=== PATIENT | female | born 1980 | race Caucasian/White ===

== ENCOUNTER 2019-03-15 09:24 | Emergency (ER) | payer SELFPAY ==
[~2019-03-15] VITALS: Ht 157.4 cm; Wt 65.8 kg
[~2019-03-15 09:24] MED LIST: ANAPROX DS550 MG PO; FE-TABS325 MG PO; HYDROCODONE BIT1 T11 PO; IBUPROFEN600 MG PO; MACROBID100 M1 PO; PRENATAL1 TA2 PO; PRENATAL1 TA6 PO; TRAMADOL HCL50 MG PO; ZOFRAN ODT4 MG SL
== END 2019-03-15 09:55 | disposition home or self-care (01) ==
LOC: ED 09:24
DX: L55.0 Sunburn of first degree (principal)

== ENCOUNTER 2019-06-15 14:32 | Emergency (ER) | payer SELFPAY ==
[~2019-06-15] VITALS: Ht 157.4 cm; Wt 65.8 kg
[2019-06-15] MEDS ORDERED: PENICILLIN VK500 MG PO (15:41)
== END 2019-06-15 16:10 | disposition home or self-care (01) ==
LOC: ED 14:32
DX: K04.7 Periapical abscess without sinus (principal); F17.200 Nicotine dependence, unspecified, uncomplicated

== ENCOUNTER 2019-06-22 16:08 | Emergency (ER) | payer SELFPAY ==
[~2019-06-22] VITALS: Ht 157.4 cm; Wt 69.9 kg
[~2019-06-22 16:08] MED LIST changes: +PENICILLIN VK500 MG PO
[2019-06-22] MEDS ORDERED: Motrin,Rufen800 MG PO (16:21)
[2019-06-22] MEDS ORDERED: SEPTDS PO (16:21)
[2019-06-22] MEDS ORDERED: KEFLEX500 M1 PO (16:21)
[2019-06-22] MEDS ORDERED: CEFADROXIL500 M1 PO (16:22)
== END 2019-06-22 16:29 | disposition home or self-care (01) ==
LOC: ED 16:08
DX: L02.411 Cutaneous abscess of right axilla (principal); F17.200 Nicotine dependence, unspecified, uncomplicated; Z98.890 Other specified postprocedural states

== ENCOUNTER 2019-06-24 16:51 | Inpatient (IN) | payer SELFPAY ==
[~2019-06-24] VITALS: Ht 157.4 cm; Wt 64.9 kg
--- NOTE | ~2019-06-24 | PROC NOTE ---
[place], [place] PROCEDURE NOTE [id number] UN[facility] #: [id number] ROOM: 526 DOCTOR: SAE LEDESMA MD BIRTHDATE: [birth year] DOS: 06/28/2019 PREOPERATIVE DIAGNOSIS: Right axillary abscess. POSTOPERATIVE DIAGNOSIS: Right axillary abscess. PROCEDURE: Drainage of right axillary abscess. SURGEON: Sae Ledesma MD PHYSICAL THERAPY PROFESSOR: LEO. ANESTHESIA: MAC. INDICATIONS: This is a 38-year-old lady admitted for the past few days with a right axillary abscess, who is here for the above-mentioned procedure. The procedure and its complications were explained to the patient in detail and she agreed to proceed. DESCRIPTION OF PROCEDURE: After identifying the patient, the patient was brought to the operating suite and laid in the supine position. After time-out procedure was called, IV sedation was administered by the anesthesia team and the entire parts were then painted and draped in the usual sterile fashion. The patient already had an opening in the right axilla from which seropurulent drainage was seen to emanate. There was no debridement necessary. No incision was made. Through this opening, the fluid was drained in its entirety and saline was used for irrigation. Thereafter, a quarter inch iodoform was used for packing and a dressing was placed. The patient tolerated the procedure well. There were no complications. Dr. Sae Ledesma, the attending surgeon, who was present throughout the operating case. Sae Ledesma MD CM:PROCNOTE:PROCEDURE NOTE [id number] SAE LEDESMA MD
[~2019-06-24 16:51] MED LIST changes: +CEFADROXIL500 M1 PO; +KEFLEX500 M1 PO; +Motrin,Rufen800 MG PO; +SEPTDS PO
[2019-06-24 16:56] VITALS: BP 134/81
[2019-06-24 18:13] LABS: BASO % 0.2 % (0.0-1.0); EOS # 0.2 10*3/uL (0.0-0.4); EOS % 1.1 % (1.0-4.0); HEMATOCRIT 39.9 % (37.0-47.0); MEAN CELL VOLUME 92.1 fl (81.0-99.0); MEAN CORPUSCULAR HGB 32.3 pg (27.0-31.0); MEAN CORPUSCULAR HGB CONC 35.1 g/dl (33.0-37.0); MEAN PLATELET VOLUME 10.7 fl (9.6-12.3); MONO # 1.3 10*3/uL (0.1-1.0); MONO % 8.4 % (3.0-9.0); NEUT # 11.6 10*3/uL (2.3-7.9); NEUT % 76.6 % (47.0-73.0); PLATELET COUNT AUTOMATED 288 10*3/uL (130-400); RED BLOOD COUNT 4.33 10*6/uL (4.10-5.10); RED CELL DISTRI WIDTH 13.2 % (0-14.5); WHITE BLOOD COUNT 15.2 10*3/uL (4.8-10.8)
[2019-06-24 18:28] LABS: ALBUMIN 2.8 gm/dl (3.1-4.5); CREATININE 2.82 mg/dL (0.55-1.02); POTASSIUM 2.6 mmol/L (3.5-5.1); TOTAL PROTEIN 7.4 gm/dL (6.4-8.2)
[2019-06-24 18:33] LABS: ACT PARTIAL THROMBO TIME 22.5 SECONDS (20.0-32.1); INTERNATIONAL NORM RATIO 0.9 (2.0-3.5)
[2019-06-24 18:45] LABS: BILIRUBIN NEGATIVE (NEGATIVE); BLOOD 2+ (NEGATIVE); CLARITY SL CLOUDY (CLEAR); COLOR YELLOW (YELLOW); GLUCOSE NEGATIVE (NEGATIVE); KETONE NEGATIVE (NEGATIVE); LEUKO ESTERASE TRACE (NEGATIVE); NITRITE NEGATIVE (NEGATIVE)
[2019-06-24 18:55] LABS: BACTERIA 2+; WBC TNTC wbc/hpf (0-5)
[2019-06-24 20:07] VITALS: BP 129/87
[2019-06-24 20:30] VITALS: BP 132/88
--- NOTE | 2019-06-24 20:30 | NUR ---
Time: 2029 A 38 year old FEMALE admitted to 5E under services of MAYANK PINEDA DO. Pt. arrived via stretcher from ER. Chief complaint: CELLULITIS. YOLA, SEVERE SEPSIS. JOSE ARMSTRONG
--- NOTE | 2019-06-24 20:30 | NUR ---
A 38, admitted to , under the services of MAYANK Pineda DO with a diagnosis of cellulitis. Chief complaint is failed outpatient treatment redness getting worse. Patient arrived via stretcher from ER. Monitor applied. Initial assessment completed. Vital signs taken and recorded. MAYANK PINEDA DO notified of admission to the unit. Orders received. See assessment for past medical history, medications and allergies. Patient and/or family oriented to unit. [facility] visitation policy reviewed. Clothing/patient valuable form completed. HENRY ANGUIANO
--- NOTE | 2019-06-24 21:00 | NUR ---
PT. NOT TOLERATING IV FLUIDS INFUSING AT 999ML/H HAD TO TURN FLUIDS DOWN TO 250ML/HR. ALSO LEFT ARM IV SITE BECOMING RED AND ITCHING PT. ALSO HAS VANCOMYCIN INFUSING AT DIRECTED RATE AND THIS WAS STOPPED AND JUST FLUSHING WITH 0.9NS. NOTIFYING PHYSICIAN.
--- NOTE | 2019-06-24 21:15 | NUR ---
NOTIFIED DR. BLAKELY STOPPING VANCOMYCIN BECAUSE OF REDNESS AND ITCHING AT IV SITE AND HE IS TO GET BACK WITH THIS RN FOR FURTHER ORDERS.
--- NOTE | 2019-06-24 21:17 | NUR ---
PT C/O RUE PAIN10/10. MEDICATED WITH PRN MED. SEE EMAR FOR FURTHER DOCUMENTATION. WILL MONITOR FOR EFFECTIVENESS
--- NOTE | 2019-06-24 21:53 | NUR ---
BENADRYL GIVEN PER ORDER FOR ITCHING LEFT ARM AND REDNESS. POSSIBLE ALLERGY TO VANCOMYCIN. PER DR. ZORA VALDEZ PER PHARMACY TO RESTART VANCOMYCIN AT LOWER RATE AND PT. TO MONITOR PATIENT FOR ALLERGY FOR NEXT TWO HOURS.
--- NOTE | 2019-06-24 22:15 | NUR ---
MORPHINE EFFECTIVE FOR RIGHT ARM PIT PAIN. PT. COULD NOT TOLERATED IV FLUIDS INFUSING AT 999ML/HR HAD TO TURN FLUID DOWN TO 250CC/HR PT. TOLERATING THIS BETTER.
[2019-06-25] VITALS: BP 124/84
--- NOTE | 2019-06-25 01:58 | NUR ---
SLEEPING AT THIS TIME. RESP. EASY AND REG.HR PER CM STILL 110'S
--- NOTE | 2019-06-25 03:46 | NUR ---
MORPHINE GIVEN PER ORDER FOR RIGHT AXILLARY ABSCESS PAIN RATED "10". SEE MAR.
--- NOTE | 2019-06-25 04:35 | NUR ---
MORPHINE EFFECTIVE FOR RIGHT ARM ABSCESS PAIN. PT. SLEEPING. RESP. EASY AND REG.
--- NOTE | 2019-06-25 05:31 | NUR ---
ASH [facility]ONEL [id number] Please refer to the physician's history and physical for past medical history, comorbid conditions, and allergies. Diagnosis: CELLULITIS YOLA SEVERE SEPSIS Rene Score: 23,LOW OR NO RISK WOUND DESCRIPTIONS: Wound Number: 1 Location of the wound: right axilla Thickness: Full Size: 0.7cm x 2.2cm x 1.9cm Tunneling: none Undermining: none Sinus Tract: none Presence of Exudate: Purulent Amount: Moderate Color: Yellow, brown, red Odor: None Periwound Skin Appearance: Normal Wound edges: approximated Pain (associated with wound): very tender to touch How does patient state this happened? pt stated that this started on june 15 and the or the in our ED. Surface the patient is resting on: Position SKIN PREVENTION RECOMMENDATION: 1. Pressure redistribution support surface as appropriate 2. Elevate heels 3. Remove boots/TEDS every shift and reapply 4. Head of bed 30 degrees as tolerated 5. Assess nutrition and hydration 6. Manage moisture 7. Avoid the use of containment devices while in bed 8. Use absorptive products on surfaces limit layers of linens on bed 9. Turn and reposition every 1-2 hours in bed and every 1 hour in chair as tolerated 10. Weight shifts every 15 minutes while up in chair 11. Offloading with pillows or device to keep heels elevated off bed 12. Monitor skin at least every shift 13. Inspect under medical devices twice a day WOUND TREATMENT RECOMMENDATIONS: Full thickness guidelines: Cleanse right axilla with nss and apply sureprep around the wound therahoney to wound bed and lightly pack with maxorb ag. Possible ID for right axilla surgery is on and patient is npo for possible surgery. Patient states she will follow up with Dr. Ledesma or in the wound care center upon discharge for treatment.
--- NOTE | 2019-06-25 05:58 | NUR ---
CALLED DR. DAVE AND NOTIFIED HIM OF CONSULT AND PT. CONDITION AND CT SCAN RESULTS. NO NEW ORDERS AT THIS TIME BUT PT. IS NPO UNTIL DR. DAVE SEES PATIENT.
[2019-06-25 07:09] LABS: BASO % 0.3 % (0.0-1.0); EOS # 0.1 10*3/uL (0.0-0.4); EOS % 1.3 % (1.0-4.0); HEMATOCRIT 30.7 % (37.0-47.0); HEMOGLOBIN 10.6 g/dl (12.0-16.0); LYMPH # 1.5 10*3/uL (1.3-4.4); LYMPH % 16.1 % (27.0-41.0); MEAN CELL VOLUME 92.7 fl (81.0-99.0); MEAN CORPUSCULAR HGB CONC 34.5 g/dl (33.0-37.0); MEAN PLATELET VOLUME 10.5 fl (9.6-12.3); MONO # 1.1 10*3/uL (0.1-1.0); MONO % 11.7 % (3.0-9.0); NEUT # 6.5 10*3/uL (2.3-7.9); NEUT % 69.7 % (47.0-73.0); PLATELET COUNT AUTOMATED 250 10*3/uL (130-400); RED BLOOD COUNT 3.31 10*6/uL (4.10-5.10); RED CELL DISTRI WIDTH 13.2 % (0-14.5); WHITE BLOOD COUNT 9.4 10*3/uL (4.8-10.8)
[2019-06-25 07:20] LABS: POTASSIUM 2.9 mmol/L (3.5-5.1)
[2019-06-25 07:29] LABS: CREATININE 1.49 mg/dL (0.55-1.02); PHOSPHOROUS 2.8 mg/dL (2.5-4.9); THYROID STIM HORMONE (HS) 0.31 uIU/ml (0.358-4.75); TOTAL PROTEIN 5.4 gm/dL (6.4-8.2)
[2019-06-25 08:00] VITALS: BP 118/80
--- NOTE | 2019-06-25 08:34 | NUR ---
PT C/O 10/10 PAIN TO RIGHT AXILLA, MEDICATED WITH MORPHINE PER ORDER. WILL MONITOR.
--- NOTE | 2019-06-25 09:00 | NUR ---
PT MUCH MORE RELAXED AND STATES MORPHINE HAS BEEN EFFECTIVE.
[2019-06-25 09:03] LABS: VITAMIN D, 25-HYDROXY 22.6 ng/mL (30-100)
--- NOTE | 2019-06-25 10:51 | NUR ---
Dr. Warren notified of wound care recommendations.
--- NOTE | 2019-06-25 10:58 | NUR ---
Follow up with Dr. Esqueda in wound care clinic on 06/28/19 at 3:00pm, call [phone] with any concerns
[2019-06-25 12:00] VITALS: BP 106/65
--- NOTE | 2019-06-25 13:27 | NUR ---
Medication Aid in to talk to patient. Patient states lives at HOME with UNCLE. There are NO steps in the home. Physician: NONE AT THIS TIME [facility]acy: [facility] Home health services: NONE Patient's level of ADLs: INDEPENDENT Patient has working utilities: YES DME: NONE Follow-up physician's appointment after d/c: WILL BE MADE BY HOSPITALIST NURSE DIRECTOR ON DISCHARGE Does patient want to access PORTAL?: NO Discharge plan PT LIVES AT HOME WITH HER UNCLE AND IS INDEPENDENT IN HER CARE. DENIES SHE WILL HAVE NEEDS AT HOME. WILL CONTINUE TO FOLLOW. PT STATES SHE WILL HAVE A RIDE HOME ON DISCHARGE.. HANSA BRADLEY
[2019-06-25 16:00] VITALS: BP 117/69
--- NOTE | 2019-06-25 16:21 | NUR ---
PATIENT COMPLAINING OF PAIN IN RIGHT AXILLA AREA WHERE HER WOUND IS . NORCO GIVEN PER REQUEST FOR A 6 OUT 10 ON THE PAIN SCALE. CALL LIGHT WITHIN REACH.
[2019-06-25 20:00] VITALS: BP 114/76
--- NOTE | 2019-06-25 20:19 | NUR ---
NORCO GIVEN FOR PAIN RIGHT ARM RATED "10" WORSE WITH MOVEMENT. SEE MAR.
--- NOTE | 2019-06-25 21:18 | NUR ---
NORCO HELPS WITH DECREASING PAIN PER PT.
[2019-06-26] VITALS: BP 108/70
[2019-06-26 06:36] LABS: BASO % 0.6 % (0.0-1.0); EOS # 0.2 10*3/uL (0.0-0.4); EOS % 2.1 % (1.0-4.0); HEMATOCRIT 31.6 % (37.0-47.0); HEMOGLOBIN 10.8 g/dl (12.0-16.0); LYMPH # 1.6 10*3/uL (1.3-4.4); LYMPH % 21.5 % (27.0-41.0); MEAN CELL VOLUME 93.5 fl (81.0-99.0); MEAN CORPUSCULAR HGB CONC 34.2 g/dl (33.0-37.0); MEAN PLATELET VOLUME 10.3 fl (9.6-12.3); MONO # 1.1 10*3/uL (0.1-1.0); MONO % 15.7 % (3.0-9.0); NEUT # 4.2 10*3/uL (2.3-7.9); NEUT % 57.6 % (47.0-73.0); PLATELET COUNT AUTOMATED 229 10*3/uL (130-400); RED BLOOD COUNT 3.38 10*6/uL (4.10-5.10); RED CELL DISTRI WIDTH 13.8 % (0-14.5); WHITE BLOOD COUNT 7.2 10*3/uL (4.8-10.8)
[2019-06-26 06:47] LABS: CHLORIDE 115 mmol/L (98-107); POTASSIUM 3.6 mmol/L (3.5-5.1); SODIUM 144 mmol/L (136-145)
[2019-06-26 06:52] LABS: BUN 10 mg/dl (7-24)
[2019-06-26 08:00] VITALS: BP 126/84
--- NOTE | 2019-06-26 08:15 | NUR ---
PT REQUESTED AND RECEIVED IV MORPHINE PER PRN ORDER FOR C/O PAIN TO RIGHT AXILLA. RATES PAIN /10. WILL MONITOR EFFECTIVENESS. VSS. CALL LIGHT WITHIN REACH.
--- NOTE | 2019-06-26 09:00 | NUR ---
MORPHINE RELIEVING PAIN PER PT. WILL CONTINUE TO MONITOR.
[2019-06-26 12:00] VITALS: BP 126/85
[2019-06-26 16:00] VITALS: BP 134/91
[2019-06-26 20:00] VITALS: BP 135/89
--- NOTE | 2019-06-26 23:00 | NUR ---
IV discontinued LEFT ARM. Site symptomatic PAINFUL. Pressure applied. Sterile dressing applied. BUFFY ACOSTA
[2019-06-27] VITALS: BP 128/85
[2019-06-27 04:00] VITALS: BP 137/88
[2019-06-27 07:15] LABS: BUN 6 mg/dl (7-24); CHLORIDE 117 mmol/L (98-107); CREATININE 0.69 mg/dL (0.55-1.02); POTASSIUM 3.9 mmol/L (3.5-5.1); SODIUM 145 mmol/L (136-145)
[2019-06-27 07:35] LABS: HEMATOCRIT 31.4 % (37.0-47.0); HEMOGLOBIN 10.6 g/dl (12.0-16.0); MEAN CELL VOLUME 95.2 fl (81.0-99.0); MEAN CORPUSCULAR HGB 32.1 pg (27.0-31.0); MEAN CORPUSCULAR HGB CONC 33.8 g/dl (33.0-37.0); MEAN PLATELET VOLUME 11.1 fl (9.6-12.3); PLATELET COUNT AUTOMATED 244 10*3/uL (130-400); RED CELL DISTRI WIDTH 13.5 % (0-14.5); WHITE BLOOD COUNT 7.5 10*3/uL (4.8-10.8)
[2019-06-27 08:00] VITALS: BP 128/80
[2019-06-27 08:23] LABS: PLATELET SUFFICIENCY NORMAL (NORMAL); TOTAL CELLS COUNTED 100 #CELLS
[2019-06-27 12:00] VITALS: BP 137/88
[2019-06-27 16:00] VITALS: BP 137/88; BP 138/95
[2019-06-27 20:00] VITALS: BP 106/62
--- NOTE | 2019-06-27 20:51 | NUR ---
PATIENT COMPLAINS OF ARM PAIN RATED AT A 9. PRN NORCO ADMINISTERED AT THIS TIME. WILL MONITOR FOR EFFECTIVENESS.
--- NOTE | 2019-06-27 21:58 | NUR ---
PT STATES RELIEF FROM PREVIOUS NORCO.
[2019-06-28] VITALS (8 sets, daily range): BP systolic 119–149; BP diastolic 80–99
[2019-06-28 07:15] LABS: HEMATOCRIT 32.7 % (37.0-47.0); HEMOGLOBIN 10.8 g/dl (12.0-16.0); MEAN CELL VOLUME 95.6 fl (81.0-99.0); MEAN CORPUSCULAR HGB 31.6 pg (27.0-31.0); MEAN PLATELET VOLUME 10.5 fl (9.6-12.3); PLATELET COUNT AUTOMATED 272 10*3/uL (130-400); RED BLOOD COUNT 3.42 10*6/uL (4.10-5.10); RED CELL DISTRI WIDTH 13.2 % (0-14.5); WHITE BLOOD COUNT 7.1 10*3/uL (4.8-10.8)
[2019-06-28 07:41] LABS: BUN 4 mg/dl (7-24); CHLORIDE 111 mmol/L (98-107); CREATININE 0.71 mg/dL (0.55-1.02); POTASSIUM 3.5 mmol/L (3.5-5.1); SODIUM 142 mmol/L (136-145)
[2019-06-28 07:44] LABS: PLATELET SUFFICIENCY NORMAL (NORMAL); POLYCHROMASIA SLIGHT; TOTAL CELLS COUNTED 100 #CELLS; TOXIC GRANULATION SLIGHT
--- NOTE | 2019-06-28 08:38 | NUR ---
Wound care follow rescheduled for 07/01/19 at 8:00am
--- NOTE | 2019-06-28 12:13 | NUR ---
PT OFF FLOOR VIA BED FOR I&D OF RIGHT AXILLARY ABSCESS WITH DR DAVE IN OR.
--- NOTE | 2019-06-28 14:09 | NUR ---
PT RETURNED TO FLOOR VIA BED FROM OR.STABLE AT THIS TIME REPORT RECIEVED. VITALS OBTAINED. RESPS EASY ON RA. CALL LIGHT IN REACH.
--- NOTE | 2019-06-28 14:28 | NUR ---
PATIENT COMPLAINS OF SHARP 10/10 PAIN IN THE RIGHT UNDER ARM. MEDICATED PER ORDER. WILL CONTINUWE TO MONITOR FOR RELIEF. VERBALIZED NO OTHER CONCERNS AT THIS TIME. RESTING IN BED. CALL LIGHT WITHIN REACH.
--- NOTE | 2019-06-28 14:29 | NUR ---
PT HAS NO NEEDS ON DISCHARGE PER HER. WILL CONTINUE TO FOLLOW.
--- NOTE | 2019-06-28 17:09 | NUR ---
Patient resting quietly with no c/o discomfort. Respirations easy and regular. Vital signs stable. No overt distress. DYLON DALH
--- NOTE | 2019-06-28 18:13 | NUR ---
IV started left forearm with #22 angiocath after 1 attempts. The IV site was prepped with Chloraprep. Heparin lock attached. Sterile dressing applied. Patient tolerated precedure well. Procedure performed according to [facility] policy & procedure. YDLON DAHL
--- NOTE | 2019-06-28 20:19 | NUR ---
PT MEDICATED WITH PRN NORCO FOR C/O PAIN RATED A 9/10. WILL MONITOR FOR EFFECTIVENESS.
[2019-06-29] VITALS: BP 122/78
[2019-06-29 06:12] LABS: BASO # 0.1 10*3/uL (0.0-0.1); BASO % 0.5 % (0.0-1.0); EOS # 0.2 10*3/uL (0.0-0.4); EOS % 2.5 % (1.0-4.0); HEMATOCRIT 33.6 % (37.0-47.0); HEMOGLOBIN 11.3 g/dl (12.0-16.0); LYMPH # 1.7 10*3/uL (1.3-4.4); LYMPH % 18.2 % (27.0-41.0); MEAN CELL VOLUME 94.4 fl (81.0-99.0); MEAN CORPUSCULAR HGB 31.7 pg (27.0-31.0); MEAN CORPUSCULAR HGB CONC 33.6 g/dl (33.0-37.0); MEAN PLATELET VOLUME 10.3 fl (9.6-12.3); MONO # 0.6 10*3/uL (0.1-1.0); MONO % 6.7 % (3.0-9.0); NEUT # 6.5 10*3/uL (2.3-7.9); NEUT % 69.7 % (47.0-73.0); PLATELET COUNT AUTOMATED 320 10*3/uL (130-400); RED BLOOD COUNT 3.56 10*6/uL (4.10-5.10); WHITE BLOOD COUNT 9.3 10*3/uL (4.8-10.8)
[2019-06-29 06:21] LABS: BUN 4 mg/dl (7-24); CHLORIDE 110 mmol/L (98-107); CREATININE 0.71 mg/dL (0.55-1.02); POTASSIUM 3.5 mmol/L (3.5-5.1); SODIUM 143 mmol/L (136-145)
[2019-06-29 06:24] LABS: VANCOMYCIN TROUGH 14.4 ug/mL (10-20)
[2019-06-29 08:00] VITALS: BP 118/80
[2019-06-29 12:00] VITALS: BP 122/80
--- NOTE | 2019-06-29 13:24 | NUR ---
PT CONTINUES TO DENY NEEDS AT HOME. WILL CONTINUE TO FOLLOW.
--- NOTE | 2019-06-29 13:38 | NUR ---
TYLENOL GIVEN FOR C/O HEADACHE. WILL MONITOR.
[2019-06-29 16:00] VITALS: BP 144/84
[2019-06-29 20:00] VITALS: BP 127/94; BP 130/80
--- NOTE | 2019-06-29 23:58 | NUR ---
24 HR chart check completed.
[2019-06-30] VITALS: BP 121/68
[2019-06-30 08:00] VITALS: BP 134/86
[2019-06-30] MEDS ORDERED: NATURE'S BLEND F1 MG PO (08:34)
[2019-06-30] MEDS ORDERED: VITAMIN D32000 UNI1 PO (08:34)
[2019-06-30] MEDS ORDERED: SEPTDS PO (08:34)
--- NOTE | 2019-06-30 09:17 | NUR ---
[facility] Discharge instructions reviewed with patient/family. Patient receptive and verbalizes understanding. Follow-up care arranged. Written instructions given to patient/family. NATALIE MARTINEZ
== END 2019-06-30 09:17 | disposition home or self-care (01) | DRG 871 ==
LOC: ED 16:51 → 5E 19:24 → EDHOLD 19:24 → 5E 20:02
PROVIDERS: Internal Medicine; Nurse Practitioner Family; Student in an Organized Health Care Education/Training Program; ADMIT Internal Medicine
PROC: 0X940ZZ Drainage of Right Axilla, Open Approach (ICD-10-PCS; principal; 2019-06-28)
DX: A41.9 Sepsis, unspecified organism (principal); N17.0 Acute kidney failure with tubular necrosis; E43 Unspecified severe protein-calorie malnutrition; L03.113 Cellulitis of right upper limb; L02.411 Cutaneous abscess of right axilla; R65.20 Severe sepsis without septic shock; F17.210 Nicotine dependence, cigarettes, uncomplicated; B18.2 Chronic viral hepatitis C; R11.2 Nausea with vomiting, unspecified; R06.02 Shortness of breath; R42 Dizziness and giddiness; D72.9 Disorder of white blood cells, unspecified; D72.810 Lymphocytopenia; E87.6 Hypokalemia; E83.41 Hypermagnesemia; Z71.6 Tobacco abuse counseling; Z98.891 History of uterine scar from previous surgery; Z80.41 Family history of malignant neoplasm of ovary; Z68.26 Body mass index [BMI] 26.0-26.9, adult